=== PATIENT | female | born 1950 | race Caucasian/White ===

== ENCOUNTER 2021-04-24 01:59 | Outpatient (CLI) | payer OTHER, SELFPAY ==
[2021-04-24 12:16] LABS: Abs Immature Grans 0.12 10^3/uL (0.0-0.06); Absolute Basophil Count 0.06 10^3/uL (0.0-0.2); Absolute Eosinophil Count 0.01 10^3/uL (0.0-0.7); Absolute Lymphocyte Count 8.44 10^3/uL (1.2-3.4); Absolute Monocyte Count 0.45 10^3/uL (0.1-0.8); Absolute Neutrophil Count 0.87 10^3/uL (1.2-6.7); Basophils % 0.6; Eosinophils % 0.1; HCT 30.3 % (36.0-46.0); HGB 9.9 g/dL (11.2-15.7); Immature Grans % 1.2; Lymphocytes % 84.8; MCHC 32.7 % (32.0-36.0); MCV 104.1 fL (80-95); MPV 9.6 fL (8.0-11.0); Monocytes % 4.5; Neutrophils % 8.8; Nucleated RBC 0 %; Platelet Count 128 10^3/uL (130-400); RBC 2.91 10^6/uL (3.93-5.22); RDW-SD 53.7 fL; WBC 9.95 10^3/uL (4.4-10.8)
[2021-04-24 12:29] LABS: ALT 57 U/L (14-59); AST 54 U/L (15-37); Albumin 3.5 g/dL (3.4-5.0); Alkaline Phosphatase 95 U/L (46-116); Anion Gap 7.8 mmol/L (3-11); BUN 12 mg/dL (7-18); Bilirubin, Total 0.9 mg/dL (0.2-1.0); CO2 28.2 mmol/L (21.0-32.0); CREATININE 0.6 mg/dL (0.55-1.02); Calcium 8.7 mg/dL (8.5-10.1); Chloride 106 mmol/L (98-107); Glucose 93 mg/dL (74-106); LDH 247 U/L (81-234); Potassium 4.2 mmol/L (3.5-5.1); Sodium 142 mmol/L (136-145); Total Protein 7.2 g/dL (6.4-8.2)
[2021-04-24 12:50] LABS: Diff Comment Agrees w/ Instrument
[2021-04-24 12:51] LABS: RBC Morphology Normal
== END 2021-04-24 02:00 | disposition home or self-care (01) ==
LOC: LBO 02:04
PROVIDERS: PCP Legal Medicine; Visit Provider Internal Medicine Hematology & Oncology
DX: C91.Z0 Other lymphoid leukemia not having achieved remission (principal)
CPT/HCPCS: 36415; 80053; 83615; 85025

== ENCOUNTER 2021-08-28 02:43 | Outpatient (CLI) | payer OTHER, SELFPAY ==
[2021-08-28 12:57] LABS: Abs Immature Grans 0.17 10^3/uL (0.0-0.06); HCT 28.9 % (36.0-46.0); HGB 9.4 g/dL (11.2-15.7); MCH 34.2 pg (27.0-33.0); MCHC 32.5 % (32.0-36.0); MCV 105 fL (80-95); MPV 9.7 fL (8.0-11.0); Platelet Count 110 10^3/uL (130-400); RBC 2.75 10^6/uL (3.93-5.22); RDW 14.5 % (11.7-14.6); RDW-SD 54.1 fL; WBC 9.05 10^3/uL (4.4-10.8)
[2021-08-28 13:18] LABS: ALT 53 U/L (14-59); AST 55 U/L (15-37); Albumin 3.4 g/dL (3.4-5.0); Alkaline Phosphatase 89 U/L (46-116); Anion Gap 5.8 mmol/L (3-11); BUN 13 mg/dL (7-18); CO2 27.2 mmol/L (21.0-32.0); CREATININE 0.7 mg/dL (0.55-1.02); Calcium 8.6 mg/dL (8.5-10.1); Chloride 105 mmol/L (98-107); Glucose 107 mg/dL (74-106); LDH 256 U/L (81-234); Potassium 3.7 mmol/L (3.5-5.1); Sodium 138 mmol/L (136-145)
[2021-08-28 13:21] LABS: Absolute Neutrophil Count 0.72 10^3/uL (1.2-6.7); Atypical Lymphocytes % 5
[2021-08-28 13:22] LABS: Absolute Basophil Count 0.18 10^3/uL (0.0-0.2); Absolute Eosinophil Count 0.18 10^3/uL (0.0-0.7); Absolute Monocyte Count 0.36 10^3/uL (0.1-0.8); Diff Comment Manual Differential; Macrocytosis 2+; Polychromasia Present
== END 2021-08-28 02:44 | disposition home or self-care (01) ==
LOC: LBO 02:43
PROVIDERS: PCP Legal Medicine; Visit Provider Internal Medicine Hematology & Oncology
DX: C91.Z0 Other lymphoid leukemia not having achieved remission (principal)
CPT/HCPCS: 36415; 80053; 83615; 85025

== ENCOUNTER 2021-12-31 19:12 | Outpatient (CLI) | payer OTHER, SELFPAY ==
[2021-12-31 15:20] LABS: HCT 27.9 % (36.0-46.0); HGB 9.3 g/dL (11.2-15.7); MCH 35.8 pg (27.0-33.0); MCHC 33.3 % (32.0-36.0); MCV 107 fL (80-95); MPV 9.8 fL (8.0-11.0); Nucleated RBC 0.3 % (0.0-0.3); Platelet Count 107 10^3/uL (130-400); RDW 14.7 % (11.7-14.6); RDW-SD 57.9 fL; WBC 15.05 10^3/uL (4.4-10.8)
[2021-12-31 15:49] LABS: ALT 51 U/L (14-59); AST 51 U/L (15-37); Albumin 3.6 g/dL (3.4-5.0); Alkaline Phosphatase 98 U/L (46-116); Anion Gap 6.1 mmol/L (3-11); BUN 15 mg/dL (7-18); CO2 29.9 mmol/L (21.0-32.0); CREATININE 0.8 mg/dL (0.55-1.02); Calcium 8.8 mg/dL (8.5-10.1); Chloride 106 mmol/L (98-107); Estimated GFR 78.72 (mL/min/1.73m2); Glucose 100 mg/dL (74-106); LDH 253 U/L (81-234); Potassium 4.1 mmol/L (3.5-5.1); Sodium 142 mmol/L (136-145); Total Protein 7.3 g/dL (6.4-8.2)
[2021-12-31 15:58] LABS: Anisocytosis 2+; Diff Comment Manual Differential; Macrocytosis 2+
[2021-12-31 15:59] LABS: Absolute Basophil Count 0.15 10^3/uL (0.0-0.2); Bands % 1; Polychromasia Present
== END 2021-12-31 19:13 | disposition home or self-care (01) ==
LOC: LBO 19:13
PROVIDERS: PCP Legal Medicine; Visit Provider Internal Medicine Hematology & Oncology
DX: C91.Z0 Other lymphoid leukemia not having achieved remission (principal)
CPT/HCPCS: 36415; 80053; 83615; 85025

== ENCOUNTER 2023-04-01 02:32 | Outpatient (CLI) | payer MEDICARE, SELFPAY ==
[2023-04-01 10:36] LABS: MCH 34.6 pg (27.0-33.0); MCHC 32.1 % (32.0-36.0); MCV 108 fL (80-95); MPV 9.6 fL (8.0-11.0); RDW 15.6 % (11.7-14.6); WBC 16.27 10^3/uL (4.4-10.8)
[2023-04-01 10:52] LABS: ALT 43 U/L (14-59); AST 44 U/L (15-37); Albumin 3.3 g/dL (3.4-5.0); Alkaline Phosphatase 93 U/L (46-116); Anion Gap 5.5 mmol/L (3-11); BUN 12 mg/dL (7-18); Bilirubin, Total 0.9 mg/dL (0.2-1.0); CO2 29.5 mmol/L (21.0-32.0); CREATININE 0.6 mg/dL (0.55-1.02); Calcium 8.9 mg/dL (8.5-10.1); Chloride 107 mmol/L (98-107); Estimated GFR 94.72 (mL/min/1.73m2); Glucose 82 mg/dL (74-106); LDH 252 U/L (81-234); Potassium 3.8 mmol/L (3.5-5.1); Sodium 142 mmol/L (136-145); Total Protein 6.9 g/dL (6.4-8.2)
[2023-04-01 10:54] LABS: Platelet Count 77 10^3/uL (130-400)
[2023-04-01 10:55] LABS: Absolute Lymphocyte Count 14.97 10^3/uL (1.2-3.4); Absolute Monocyte Count 0.16 10^3/uL (0.1-0.8); Absolute Neutrophil Count 0.98 10^3/uL (1.2-6.7); Atypical Lymphocytes % 1; Diff Comment Manual Differential; Macrocytosis 2+; Metamyelocytes % 1
== END 2023-04-01 02:33 | disposition home or self-care (01) ==
LOC: LBO 02:32
PROVIDERS: PCP Legal Medicine; Visit Provider Internal Medicine Hematology & Oncology
DX: R91.8 Other nonspecific abnormal finding of lung field (principal)
CPT/HCPCS: 36415; 80053; 83615; 85025

== ENCOUNTER 2023-08-05 12:48 | Outpatient (CLI) | payer MEDICARE, SELFPAY ==
[2023-08-05 12:26] LABS: Abs Immature Grans 0.64 10^3/uL (0.0-0.06); Absolute Eosinophil Count 0.02 10^3/uL (0.0-0.7); Absolute Monocyte Count 0.66 10^3/uL (0.1-0.8); Basophils % 0.5 %; Eosinophils % 0.1 %; HCT 27.7 % (36.0-46.0); HGB 8.7 g/dL (11.2-15.7); Immature Grans % 3.2 %; Lymphocytes % 87.7 %; MCH 34.7 pg (27.0-33.0); MCHC 31.4 % (32.0-36.0); MCV 110 fL (80-95); MPV 9.2 fL (8.0-11.0); Monocytes % 3.3 %; Neutrophils % 5.2 %; Nucleated RBC 0.2 % (0.0-0.3); RBC 2.51 10^6/uL (3.93-5.22); RDW 15.3 % (11.7-14.6); RDW-SD 61.6 fL; WBC 20.11 10^3/uL (4.4-10.8)
[2023-08-05 12:32] LABS: Absolute Lymphocyte Count 17.64 10^3/uL (1.2-3.4); Absolute Neutrophil Count 1.05 10^3/uL (1.2-6.7)
[2023-08-05 12:43] LABS: ALT 38 U/L (14-59); AST 42 U/L (15-37); Albumin 3.5 g/dL (3.4-5.0); Alkaline Phosphatase 104 U/L (46-116); Anion Gap 5.7 mmol/L (3-11); BUN 12 mg/dL (7-18); Bilirubin, Total 1.2 mg/dL (0.2-1.0); CO2 29.3 mmol/L (21.0-32.0); CREATININE 0.6 mg/dL (0.55-1.02); Calcium 8.8 mg/dL (8.5-10.1); Chloride 106 mmol/L (98-107); Estimated GFR 94.72 (mL/min/1.73m2); Glucose 85 mg/dL (74-106); Sodium 141 mmol/L (136-145)
[2023-08-05 12:52] LABS: Platelet Count 76 10^3/uL (130-400)
[2023-08-05 12:53] LABS: Diff Comment Diff Reviewed; Macrocytosis 2+
[2023-08-05 13:16] LABS: LDH 273 U/L (81-234)
== END 2023-08-05 12:49 | disposition home or self-care (01) ==
LOC: LBO 12:49
PROVIDERS: PCP Legal Medicine; Visit Provider Nurse Practitioner Adult Health
DX: C91.Z0 Other lymphoid leukemia not having achieved remission (principal)
CPT/HCPCS: 36415; 80053; 83615; 85025

== ENCOUNTER 2023-08-14 01:56 | Outpatient (CLI) | payer MEDICARE, SELFPAY ==
[2023-08-14] MEDS: Levalbuterol HFA 15 GM INH 4 PUFF IH (14:14)
[2023-08-14] MEDS: Inhaler, Assist Device 1 EACH MC (14:14)
--- NOTE | 2023-08-31 15:22 | W.PFT ---
Date of service: 08/14/23 Time of Service: 13:01 Pulmonary Function Test Result Requesting Provider Shari Anand Indications: WARD Interpretation Spirometry: Normal FEV1/FVc and normal FEV1 and FVC Lung Volumes: Normal lung volumes Diffusion Capacity: Mild decrease in diffusion Impression Normal spirometry and lung volumes and mild decrease in diffusion which could be seen in early COPD, ILD or pulmonary vascular disease. Clinical Correlation therefore is recommended.
== END 2023-08-14 01:57 | disposition home or self-care (01) ==
LOC: RT 01:56
PROVIDERS: PCP Legal Medicine; Visit Provider Internal Medicine Critical Care Medicine
DX: J98.4 Other disorders of lung (principal)
CPT/HCPCS: 00123; 94060; 94726; 94729